=== PATIENT | female | born 1960 | race Caucasian/White ===

== ENCOUNTER 2017-03-07 02:28 | Emergency (ER) | payer BC ==
[2017-03-07 03:01] LABS: #Basophils 0.1 thou/uL (0.0-0.2); #Eosinphils 0.2 thou/uL (0.0-0.7); #Lymphocytes 0.9 thou/uL (1.20-3.40); #Monocytes 0.6 thou/uL (0.11-0.59); #Neutrophils 3.3 thou/uL (1.40-6.50); %Basophils 1.6 % (0.0-1.0); %Eosinophils 4.2 % (0.0-10.0); %Lymphocytes 17.7 % (21.0-51.0); %Monocytes 11.5 % (0.0-10.0); Hemoglobin 16.7 g/dL (12.0-16.0); Mean Corpuscular HGB CONC 33.2 g/dL (32.0-36.0); Mean Corpuscular Hemoglobin 28.6 pg (27.0-31.0); Mean Corpuscular Volume 86.3 fl (81.0-99.0); Mean Platelet Volume 6.9 fL (7.4-10.4); Platelet Count 253 thou/uL (130-400); RBC Distribution Width 10.6 % (11.5-14.5); Red Blood Cell (RBC) Count 5.85 mill/uL (4.20-5.40)
[2017-03-07] MEDS ORDERED: Ondansetron HCl/PF 4 MG/2 ML Vial ONE (03:13)
[2017-03-07 03:17] LABS: ALT (SGPT) 64 U/L (8-55); AST (SGOT) 42 U/L (5-34); Albumin 4.8 g/dL (3.5-5.0); Alkaline Phosphatase 76 U/L (40-150); Anion Gap 19 mmol/L (10-20); BUN (Urea Nitrogen) 29 mg/dL (9.8-20.1); Bilirubin, Total 1.3 mg/dL (0.2-1.2); Calc. Creatinine Clearance 0 mL/min (70-130); Calcium 10.2 mg/dL (7.8-10.44); Carbon Dioxide 22 mmol/L (22-29); Chloride 102 mmol/L (98-107); Estimated GFR-MDRD 52; Globulin 3.3 g/dL (2.4-3.5); Glucose 136 mg/dL (70-105); Lipase 43 U/L (8-78); Potassium 3.8 mmol/L (3.5-5.1); Protein, Total 8.1 g/dL (6.0-8.3); Sodium 139 mmol/L (136-145)
[2017-03-07 03:24] LABS: Bilirubin Moderate (Negative); Blood, Urine Negative (Negative); Clarity Clear (Clear); Glucose, Urine (Dipstick) Negative (Negative); Leukocyte Negative (Negative); Nitrite Negative (Negative); Protein, Urine (Dipstick) 100 mg/dL (Neg-Trace); Urobilinogen 0.2 mg/dL (0.2-1.0)
[2017-03-07 03:29] LABS: Specific Gravity, Urine 1.036 (1.002-1.036)
[2017-03-07 03:30] LABS: Hyaline Casts/LPF 0-3 HYALINE CAST LPF (0-3 Hyaline); RBC/HPF 0-3 HPF (0-3); Squamous Epithelial 21-50 HPF (0-3); WBC/HPF 0-3 HPF (0-3)
[2017-03-07 03:31] LABS: Bacteria/HPF 2+ HPF (None Seen)
--- NOTE | 2017-03-07 08:16 | CT ---
PRELIMINARY REPORT/[facility]/EMERGENCY AFTER HOURS PROCEDURE: EXAM: CT Abdomen and Pelvis Without Intravenous Contrast CLINICAL HISTORY: 57 years old, female; Pain and signs and symptoms; Nausea and vomiting; Abdominal pain; Generalized; Prior surgery; Surgery date: 6+ months; Surgery type: Lizz, total hyst; Patient HX: Patient reports onset of n/v/d on thursday, 4 days ago. She vomited 15x on thursday, but none following that until when she vomited once. No blood in her emesis. She had diarrhea 20x on , then 12-15x following that until today she went only 8x. She describes the diarrhea as watery , but denies any blood, mucus, or oil in it. The color is brown. She reports that the "only abdominal pain i had was cramping from the diarrhea. " it is diffuse over her entire abdomen when it occurs, TECHNIQUE: Axial computed tomography images of the abdomen and pelvis without intravenous contrast. All CT scans at this facility use one or more dose reduction techniques, viz.: automated exposure control; ma/kV adjustment per patient size (including targeted exams where dose is matched to indication; i.e. head) ; or iterative reconstruction technique. Coronal reformatted images were created and reviewed. COMPARISON: No relevant prior studies available. FINDINGS: Lower thorax: Small hiatal hernia. ABDOMEN: Liver: No mass. Gallbladder and bile ducts: Prior cholecystectomy. Pancreas: No ductal dilation. No mass. Spleen: No mass. Adrenals: No mass. Kidneys and ureters: No obstructing stones. No hydronephrosis. Stomach and bowel: Fluid-filled small and large bowel loops and questionable wall thickening, which c ould relate to mild enterocolitis. Fecal loading. Diverticulosis. No evidence of bowel obstruction. Appendix: Prominent appendix. Otherwise no findings to suggest acute appendicitis. PELVIS: Bladder: The bladder is decompressed. No stones. Reproductive: No acute findings. ABDOMEN and PELVIS: Intraperitoneal space: Mesenteric mild fat stranding and prominent lymph nodes, which could relate to mild mesenteric panniculitis. No free air. No significant fluid collection. Bones/joints: No acute fracture. Soft tissues: No acute findings. Vasculature: No acute findings. No abdominal aortic aneurysm. Lymph nodes: See above. IMPRESSION: Mild possible enterocolitis and mesenteric panniculitis. Thank you for allowing us to participate in the care of your patient. Dictated and Authenticated by: Heladio Garcia MD 03/07/2017 4:24 AM Central Time ([place] & [place]) FINAL REPORT EMERGENCY AFTER HOURS ABDOMEN AND PELVIC CT SCAN WITHOUT IV CONTRAST: Date: 03/07/17 Time: 0325 hours IMPRESSION: Status post cholecystectomy. Fatty changes in the liver. Small hiatal hernia. No renal calculus or obstruction. Normal appearing appendix. Considerable amount of fluid throughout the colon. Scattered mild fat stranding and some borderline to minimally enlarged central mesenteric lymph nodes, nonspec ific. No bowel obstruction or abscess. Findings could be associated with some mesenteric panniculitis and enterocolitis which would account for the fairly extensive fluid throughout the colon and history of diarrhea. Report in agreement with preliminary report given on-call by Luisa. POS: YUDITH
== END 2017-03-07 04:56 | disposition home or self-care (01) ==
LOC: SCSER 02:28
DX: K52.9 Noninfective gastroenteritis and colitis, unspecified (principal); K65.4 Sclerosing mesenteritis; Z87.891 Personal history of nicotine dependence; I34.1 Nonrheumatic mitral (valve) prolapse
CPT/HCPCS: 74176; 80053; 81003; 81015; 83605; 83630; 83690; 85025; 87324; 87328; 87329; 87449; 96361; 96374; J2405

== ENCOUNTER 2018-01-12 16:13 | Outpatient (CLI) | payer BC | END 2018-01-12 16:14 | disposition home or self-care (01) | LOC: BICMAMMO 16:13 | PROVIDERS: ATTEND Family Medicine | DX: Z12.31 Encounter for screening mammogram for malignant neoplasm of breast (principal); R92.1 Mammographic calcification found on diagnostic imaging of breast; Z80.3 Family history of malignant neoplasm of breast | CPT/HCPCS: 77063; 77067 ==

== ENCOUNTER 2020-05-15 09:10 | Outpatient (CLI) | payer OTHER | END 2020-05-15 09:11 | disposition home or self-care (01) | LOC: BICMAMMO 09:10 | PROVIDERS: ATTEND Family Medicine | DX: Z12.31 Encounter for screening mammogram for malignant neoplasm of breast (principal); N95.9 Unspecified menopausal and perimenopausal disorder; M85.859 Other specified disorders of bone density and structure, unspecified thigh; Z80.3 Family history of malignant neoplasm of breast | CPT/HCPCS: 77063; 77067; 77080 ==

== ENCOUNTER 2021-09-20 14:59 | Outpatient (CLI) | payer OTHER | END 2021-09-20 15:00 | disposition home or self-care (01) | LOC: BICMAMMO 14:59 | PROVIDERS: ATTEND Family Medicine | DX: Z12.31 Encounter for screening mammogram for malignant neoplasm of breast (principal); Z80.3 Family history of malignant neoplasm of breast | CPT/HCPCS: 77063; 77067 ==